=== PATIENT | male | born 1960 | race Caucasian/White ===

== ENCOUNTER → 2017-03-25 | Outpatient (CLI) | payer MEDICARE ==
[~2017-03-25] MED LIST: AMINOPHYLLINE 25 MG/ML, 10ML ONE; APIX5TAB PO; ATOR20TA9 PO; CARV-39 PO; CHLO25TA PO; COLC0.6T37 PO; DILT180C53 PO; DILT360C10 PO; LISI-170 PO; METO50TA82 PO; REGADENOSON 0.4 MG/5 ML SYRINGE ONE
== END | disposition home or self-care (01) ==
LOC: CFH 08:00
PROVIDERS: ATTEND Internal Medicine Cardiovascular Disease
DX: Z01.810 Encounter for preprocedural cardiovascular examination (principal); I10 Essential (primary) hypertension; I48.91 Unspecified atrial fibrillation
CPT/HCPCS: 78452; 93017; A9502; J0280; J2785

== ENCOUNTER → 2018-01-17 | Outpatient (CLI) | payer MEDICARE ==
[~2018-01-17] MED LIST changes: -AMINOPHYLLINE 25 MG/ML, 10ML ONE; -REGADENOSON 0.4 MG/5 ML SYRINGE ONE
== END | disposition home or self-care (01) ==
LOC: CVU 10:15
PROVIDERS: ATTEND Internal Medicine Cardiovascular Disease
DX: I08.1 Rheumatic disorders of both mitral and tricuspid valves (principal); I48.91 Unspecified atrial fibrillation; I10 Essential (primary) hypertension; E78.5 Hyperlipidemia, unspecified
CPT/HCPCS: 0399T; 93306

== ENCOUNTER → 2019-01-05 | Outpatient (CLI) | payer MEDICARE ==
[~2019-01-05] MED LIST changes: +ATOR20TA37 PO; -ATOR20TA9 PO; +REGADENOSON 0.4 MG/5 ML SYRINGE ONE
== END | disposition home or self-care (01) ==
LOC: CVU 07:19
PROVIDERS: ATTEND Internal Medicine Cardiovascular Disease
DX: I08.3 Combined rheumatic disorders of mitral, aortic and tricuspid valves (principal); I21.19 ST elevation (STEMI) myocardial infarction involving other coronary artery of inferior wall; I42.9 Cardiomyopathy, unspecified; I48.2 Chronic atrial fibrillation
CPT/HCPCS: 78452; 93017; 93306; A9502; J2785

== ENCOUNTER 2019-03-21 01:22 | Inpatient (IN) | payer MEDICARE ==
[~2019-03-21] VITALS: Ht 180.3 cm; Wt 142.3 kg
[2019-03-24 11:30] VITALS: BP 156/94
== END 2019-03-24 13:18 | disposition home or self-care (01) | DRG 308 ==
LOC: 5SO 03:35 → DCLOUNGE 03-24 13:11
PROVIDERS: ADMIT Internal Medicine; ATTEND Internal Medicine
DX: I48.0 Paroxysmal atrial fibrillation (principal); J96.01 Acute respiratory failure with hypoxia; Z68.41 Body mass index [BMI] 40.0-44.9, adult; D68.69 Other thrombophilia; I50.22 Chronic systolic (congestive) heart failure; E66.01 Morbid (severe) obesity due to excess calories; E11.9 Type 2 diabetes mellitus without complications; E78.5 Hyperlipidemia, unspecified; G47.33 Obstructive sleep apnea (adult) (pediatric); I11.0 Hypertensive heart disease with heart failure; I42.9 Cardiomyopathy, unspecified; I47.2 Ventricular tachycardia; J32.9 Chronic sinusitis, unspecified; N28.9 Disorder of kidney and ureter, unspecified; W16.112A Fall into natural body of water striking water surface causing other injury, initial encounter; Y93.89 Activity, other specified; Y92.89 Other specified places as the place of occurrence of the external cause; Y99.8 Other external cause status; Z79.01 Long term (current) use of anticoagulants; Z82.49 Family history of ischemic heart disease and other diseases of the circulatory system; Z87.891 Personal history of nicotine dependence
CPT/HCPCS: 36415; 70450; 80048; 80162; 82962; 83036; 83735; 84100; 84443; 84484; 85025; 93306; 93880; G0378; J1160; J1815; J3475; Q0163

== ENCOUNTER → 2020-11-24 | Outpatient (CLI) | payer MEDICARE ==
[~2020-11-24] MED LIST changes: +ALLO300T PO; +CARV25TA12 PO; +DIGO125T85 PO; +DIGO250T3 PO; +DILT120T3 PO; -DILT360C10 PO; +DILT360C32 PO; +INSU100V8 SQ; +LOSA25TA12 PO; +METF-734 PO; -REGADENOSON 0.4 MG/5 ML SYRINGE ONE
== END | disposition home or self-care (01) ==
LOC: CVU 07:54
PROVIDERS: ATTEND Internal Medicine Cardiovascular Disease
DX: I08.3 Combined rheumatic disorders of mitral, aortic and tricuspid valves (principal); I11.9 Hypertensive heart disease without heart failure; I42.9 Cardiomyopathy, unspecified
CPT/HCPCS: 93306